=== PATIENT | male | born 1990 | race Caucasian/White ===

== ENCOUNTER 2020-03-19 13:04 | Emergency (ER) | payer OTHER ==
[~2020-03-19] VITALS: Ht 177.8 cm; Wt 68.3 kg
[2020-03-19 13:08] VITALS: BP 130/77
--- NOTE | 2020-03-19 14:24 | NUR ---
Patient given discharge instructions and they have confirmed that they understand the instructions.
== END 2020-03-19 14:25 | disposition home or self-care (01) ==
LOC: ED 13:21
DX: S83.91XA Sprain of unspecified site of right knee, initial encounter (principal); X58.XXXA Exposure to other specified factors, initial encounter; Y93.89 Activity, other specified; Y92.098 Other place in other non-institutional residence as the place of occurrence of the external cause; Y99.8 Other external cause status
CPT/HCPCS: 29505; 99283